=== PATIENT | female | born 1955 | race American Indian/Alaskan Native ===

== ENCOUNTER 2017-12-23 03:33 | Emergency (ER) | payer BC ==
[2017-12-23 04:01] VITALS: BP 177/88
--- NOTE | 2017-12-23 04:54 | Emergency Department Report ---
ED ENT HPI - General Chief complaint: Dental/Oral Stated complaint: TOOTHACHE Time Seen by Provider: 12/23/17 04:49 Source: patient Mode of arrival: Ambulatory Limitations: No Limitations - History of Present Illness Initial comments: 62-year-old -[place] female comes in today for complaint of toothache on the right lower jaw 1 week. Patient reports that she saw a dentist 5 weeks ago and was told that she needs a tooth extraction. Patient has not taken any pain medication reports I don't light taking any pills". Patient denies any swelling to her jaw denies any swelling to her gum. She denies any fever no chills. Patient is evaluated and followed by Dr. Lilli liang [facility] dentistry. Patient's allergic to penicillin and morphine and ibuprofen. She currently takes no medications MD complaint: tooth pain -: week(s) (1) Location: tooth # Severity: mild Severity scale (0 -10): 4 Quality: aching Improves with: none Worsens with: none Context- Dental: history of dental caries Associated Symptoms: denies: fever, cough, gum swelling, pain with swallowing, sore throat, tinnitus, discharge from ear, rhinorrhea - Related Data Home Medications Medication Instructions Recorded Confirmed Last Taken No Known Home Medications [No 12/23/17 12/23/17 Unknown Reported Home Medications] Allergies Allergy/AdvReac Type Severity Reaction Status Date / Time ibuprofen Allergy Rash Verified 12/23/17 04:02 morphine Allergy Hives Verified 12/23/17 04:02 Penicillins Allergy Rash Verified 12/23/17 04:03 ED Dental HPI - General Chief complaint: Dental/Oral Stated complaint: TOOTHACHE Time Seen by Provider: 12/23/17 04:49 Source: patient Mode of arrival: Ambulatory Limitations: No Limitations - Related Data Home Medications Medication Instructions Recorded Confirmed Last Taken No Known Home Medications [No 12/23/17 12/23/17 Unknown Reported Home Medications] Allergies Allergy/AdvReac Type Severity Reaction Status Date / Time ibuprofen Allergy Rash Verified 12/23/17 04:02 morphine Allergy Hives Verified 12/23/17 04:02 Penicillins Allergy Rash Verified 12/23/17 04:03 ED Review of Systems ROS: Stated complaint: TOOTHACHE Other details as noted in HPI Constitutional: denies: chills, fever Eyes: denies: eye pain, eye discharge, vision change ENT: dental pain Respiratory: denies: cough, shortness of breath, wheezing Cardiovascular: denies: chest pain, palpitations Endocrine: no symptoms reported Gastrointestinal: denies: abdominal pain, nausea, diarrhea Genitourinary: denies: urgency, dysuria, discharge Musculoskeletal: denies: back pain, joint swelling, arthralgia Skin: denies: rash, lesions Neurological: denies: headache, weakness, paresthesias Psychiatric: denies: anxiety, depression Hematological/Lymphatic: denies: easy bleeding, easy bruising ED Past Medical Hx - Past Medical History Additional medical history: Obesity - Surgical History Past Surgical History?: No Additional Surgical History: Tubal Ligation. Tonsilectomy. Bilateral ankle surgery - Social History Smoking Status: Never Smoker Substance Use Type: None - Medications Home Medications: Home Medications Medication Instructions Recorded Confirmed Last Taken Type No Known Home Medications [No 12/23/17 12/23/17 Unknown History Reported Home Medications] ED Physical Exam - General Limitations: No Limitations General appearance: alert, in no apparent distress - Head Head exam: Present: atraumatic, normocephalic - Eye Eye exam: Present: normal appearance - ENT ENT exam: Present: normal exam, mucous membranes moist - Expanded ENT Exam Expanded Teeth exam: Present: dental caries (with a temporary filling to the tooth #30), other (no halitosis no tenderness to the jaw no swelling to the jaw). Absent: fractured tooth #, dental tenderness #, gingival enlargement - Neck Neck exam: Present: normal inspection, full ROM. Absent: tenderness, lymphadenopathy - Respiratory Respiratory exam: Present: normal lung sounds bilaterally. Absent: respiratory distress - Cardiovascular Cardiovascular Exam: Present: regular rate, normal rhythm. Absent: systolic murmur, diastolic murmur, rubs, gallop - GI/Abdominal GI/Abdominal exam: Present: soft, normal bowel sounds ED Course Vital Signs 12/23/17 12/23/17 03:39 03:55 Temperature 98.2 F 98.2 F Pulse Rate 71 71 Respiratory 18 16 Rate Blood Pressure 187/97 177/88 O2 Sat by Pulse 97 100 Oximetry ED Medical Decision Making - Medical Decision Making Patient has been evaluated by this provider fast track. I discussed the patient that she can take pain medication to help with her tooth pain. I discussed the patient has no signs of infection there's no swelling of the gingiva, there is no fever, there is no swollen or tenderness to the right jaw line. There is no halitosis. Discussed the patient's initial follow-up with Dr. Reeder. I also discussed the patient at her tooth ache is not a tooth abscess and it does not warranted antibiotics. Critical care attestation.: If time is entered above; I have spent that time in minutes in the direct care of this critically ill patient, excluding procedure time. ED Disposition Clinical Impression: Toothache Disposition: ELOPED Is pt being admited?: No Does the pt Need Aspirin: No Condition: Stable Referrals: PRIMARY CARE, [Primary Care Provider] - 3-5 Days
== END 2017-12-23 05:00 | disposition left against medical advice (07) ==
LOC: ED 03:33
DX: K08.89 Other specified disorders of teeth and supporting structures (principal); Z88.6 Allergy status to analgesic agent; Z88.0 Allergy status to penicillin
CPT/HCPCS: 99281

== ENCOUNTER 2019-04-11 13:10 | Emergency (ER) | payer BC, OTHER ==
[2019-04-11 13:58] VITALS: BP 139/76
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
== END 2019-04-11 16:17 | disposition home or self-care (01) ==
LOC: ED 13:10
DX: M62.838 Other muscle spasm (principal); M25.512 Pain in left shoulder; M25.511 Pain in right shoulder; Z98.51 Tubal ligation status; Z98.890 Other specified postprocedural states; V43.52XA Car driver injured in collision with other type car in traffic accident, initial encounter; Y93.89 Activity, other specified; Y92.488 Other paved roadways as the place of occurrence of the external cause; Y99.8 Other external cause status
CPT/HCPCS: 99283